=== PATIENT | male | born 1960 | race Two or more races ===

== ENCOUNTER 2019-05-06 11:54 | Day surgery (SDC) | payer OTHER ==
[~2019-05-06] VITALS: Ht 167.6 cm; Wt 86.2 kg
[~2019-05-06 11:54] MED LIST: ASPI-404 PO; ATOR40TA52 PO; EZET10TA22 PO; METO-169 PO; OMEP20TA PO; POTA10TA51 PO; TAM04C PO
[2019-05-06] MEDS ORDERED: LIDOCAINE 2%HCL (LOCAL ANESTH.) INJ 20ML MDV ONE ×2 (13:18→13:23)
[2019-05-06] MEDS ORDERED: IOHEXOL 350 MG/ML 100ML IJ ONE (13:18)
[2019-05-06] MEDS ORDERED: HEPARIN SODIUM (PORCINE) 5000 UNITS/ML 1ML VIAL ONE (13:22)
[2019-05-06] MEDS ORDERED: ANGIOMAX 250 MG VIAL IV ONE (13:22)
[2019-05-06] MEDS ORDERED: fentaNYL CITRATE 100 MCG/2 ML VL ONE (13:23)
[2019-05-06] MEDS ORDERED: MIDAZOLAM HCL 1MG/1ML-2 ML VIAL ONE (13:23)
[2019-05-06] MEDS ORDERED: VERAPAMIL 2.5MG/ML INJ 2ML VIAL IV ONE (13:23)
[2019-05-06] MEDS ORDERED: SODIUM CHL 0.9% 0 ML ONE (13:23)
== END 2019-05-06 16:24 | disposition home or self-care (01) ==
LOC: CATH 11:54
PROVIDERS: ATTEND Internal Medicine Cardiovascular Disease
DX: R07.89 Other chest pain (principal); G47.33 Obstructive sleep apnea (adult) (pediatric); I99.8 Other disorder of circulatory system; I10 Essential (primary) hypertension; E78.5 Hyperlipidemia, unspecified; F41.9 Anxiety disorder, unspecified; Z79.82 Long term (current) use of aspirin; Z79.899 Other long term (current) drug therapy; Z88.5 Allergy status to narcotic agent; Z88.1 Allergy status to other antibiotic agents
CPT/HCPCS: 93458; C1887; C1894; J1644; J2250; J3010; Q9967; 99152; 99153